=== PATIENT | female | born 1990 | race Two or more races ===

== ENCOUNTER 2016-07-26 17:39 | Emergency (ER) | payer BC, OTHER ==
[~2016-07-26] VITALS: Ht 157.5 cm; Wt 54.4 kg
[2016-07-26 17:48] VITALS: BP 127/87
[2016-07-26] MEDS ORDERED: CORTISPORIN EAR10 ML BOTH EARS (18:27)
[2016-07-26] MEDS ORDERED: ROBITUSSIN COU118 M4 PO (18:27)
[2016-07-26 19:03] VITALS: BP 127/87
--- NOTE | 2016-07-27 12:34 | Emergency Room Report ---
History of Present Illness General Chief Complaint: General Complaint Source: Patient Present Illness HPI The pt is a 25 yo F presenting for sore throat, cough, and ear pain which all began 4 days prior. The pt describes the ear pain as an 8/10 dull ache and does not radiate. The pt describes throat pain as burning with swallowing. No sick contacts or recent travel. Pt admits to subjective fevers. Allergies: Coded Allergies: No Known Allergies (Unverified , 07/26/16) Patient History Past Medical History: see triage record Pertinent Family History: none Last Menstrual Period: 07/05/16 Now: No Reviewed Nursing Documentation: PMH: Agreed, PSxH: Agreed Nursing Documentation-PMH Past Medical History: No Stated History Review of Systems All Other Systems: negative except mentioned in HPI Physical Exam Vital Signs Date Time Temp Pulse Resp B/P Pulse Ox O2 Delivery O2 Flow Rate FiO2 07/26/16 17:45 98.1 61 15 127/87 100 Room Air Sp02 EP Interpretation: reviewed, normal General Appearance: no apparent distress, alert, GCS 15, non-toxic Head: normocephalic, atraumatic Eyes: bilateral eye PERRL, bilateral eye normal inspection ENT: hearing grossly normal, normal pharynx, no angioedema, normal voice, uvula midline, other - Bilat EAC: erythema, edema, and white DC Neck: full range of motion, supple/symm/no masses Respiratory: chest non-tender, lungs clear, normal breath sounds, speaking full sentences Cardiovascular #1: regular rate, rhythm, no edema Gastrointestinal: normal bowel sounds, non tender, soft, non-distended, no guarding, no rebound Musculoskeletal: back normal, gait/station normal, normal range of motion, non- tender, calf tenderness Neurologic: alert, oriented x3, responsive, motor strength/tone normal, sensory intact, speech normal Psychiatric: judgement/insight normal, memory normal, mood/affect normal, no suicidal/homicidal ideation Skin: normal color, no rash, warm/dry, well hydrated Medical Decision Making PA Attestation Dr. Casas is my supervising physician. Patient management was discussed with my supervising physician Diagnostic Impression: Primary Impression: Bilateral otitis externa ER Course The pt is a 25 yo F presenting for sore throat, cough, and ear pain which all began 4 days prior. DDx: otitis externa, otitis media, pharyngitis PE: Vitals WNL. NAD Bilat EAC: erythema, edema, and white DC. Otherwise unremarkable. Pt was given motrin for pain. Pt DC'ed with cortisporin. ER precautions given Last Vital Signs Date Time Temp Pulse Resp B/P Pulse Ox O2 Delivery O2 Flow Rate FiO2 07/26/16 19:03 98.1 89 15 127/87 100 Room Air Status: improved Disposition: HOME, SELF-CARE Condition: Improved Scripts Guaifenesin/Dextromethorphan (Robitussin Cough-Chest Dm Liq) 118 Ml Liquid 10 ML PO Q4HR, #118 ML Prov: SARAH SEALS 07/26/16 Neomycin/Polymyxin B Sulf/Hc* (CORTISPORIN EAR SOLUTION*) 10 Ml Solution 4 DROP BOTH EARS QID, #10 ML 0 Refills Prov: SARAH SEALS.A. 07/26/16 Referrals: NOT CHOSEN [facility]/MD,REFERRING (PCP) Departure Forms: Return to Work Return to Work Date: Jul 28, 2016 Patient Instructions: Otitis Externa Additional Instructions: I discussed my findings with the patient. All questions and concerns have been answered. Treatment and medication compliance have been addressed. I advised the patient that they need to follow up with PMD in 3-5 days. Return to ED if pain remains or worsens, cough worsens or remains, you notice blood in your sputum, you notice wheezing, you experience a fever, or if needed for any reason. Patient verbalized understanding of discharge instructions. SARAH SEALS Jul 27, 2016 12:34
== END 2016-07-26 19:03 | disposition home or self-care (01) ==
LOC: EMR 18:15
DX: H60.93 Unspecified otitis externa, bilateral (principal)
CPT/HCPCS: 99284